=== PATIENT | female | born 1960 | race Caucasian/White ===

== ENCOUNTER 2021-08-26 16:44 | Inpatient (IN) ==
[2021-08-26] MEDS ORDERED: Naloxone 0.4 MG/ML INJ IVP PRN (17:27)
[2021-08-26] MEDS ORDERED: Ondansetron ODT 4 MG TAB.RAPDIS SL PRN (17:27)
[2021-08-26] MEDS ORDERED: D5% in Water 1,000 ML IVC PRN (17:30)
[2021-08-26] MEDS ORDERED: *HR* Dextrose 50 % in Water (Syg) 50 ML SYRINGE IVP PRN (17:30)
[2021-08-26] MEDS ORDERED: Dextrose Gel 15 GM/37.5 ML TUBE PO PRN ×2 (17:30)
[2021-08-26] MEDS ORDERED: Vancomycin 2,000 MG/520 ML IV.SOLN IVPB ONE (19:00)
[2021-08-26 23:11] LABS: Basophils # 0.1 K/mcL (0.0-0.2); Basophils % 0.8 %; Eosinophils # 0.2 K/mcL (0.0-0.6); Eosinophils % 2.4 %; Hemoglobin 8.9 g/dL (11.5-15.4); Immature Granulocytes % 1.9 % (0-4); Lymphocytes # 1.2 K/mcL (0.6-4.6); Lymphocytes % 19.4 %; Mean Corpuscular HGB Conc 30.7 g/dL (31.6-35.5); Mean Corpuscular Hemoglobin 26.4 pg (28.0-33.3); Mean Corpuscular Volume 86.1 fL (83.0-100.0); Mean Platelet Volume 8.8 fL (9.4-12.4); Monocytes # 0.4 K/mcL (0.0-1.3); Monocytes % 5.8 %; Neutrophils # 4.4 K/mcL (1.6-8.9); Platelet Count 218 K/mcL (140-400); Red Blood Count 3.37 M/mcL (3.82-4.97); Red Cell Distribution Width 15.1 % (11.5-14.5); Segmented Neutrophils % 69.7 %; White Blood Count 6.3 K/mcL (4.3-11.1)
[2021-08-26 23:18] LABS: INR 1.2; Prothrombin Time 13.7 Seconds (9.4-12.1)
[2021-08-26 23:20] LABS: Activated Partial Thrombo Time 34.1 Seconds (26.0-36.0)
[2021-08-26] MEDS: *HR* HYDROcodone/Acet 5/325 mg TABLET PO PRN (23:42)
[2021-08-26 23:50] LABS: Alanine Aminotransferase 33 Units/L (7-52); Albumin 3.5 g/dL (3.5-5.7); Albumin/Globulin Ratio 1.1 (1.1-2.2); Alkaline Phosphatase 119 Units/L (34-104); Aspartate Amino Transferase 49 Units/L (13-39); BUN/Creatinine Ratio 16 (6-26); Bilirubin,Total 0.6 mg/dL (0.3-1.0); Blood Urea Nitrogen 13 mg/dL (8-23); Calcium 8.9 mg/dL (8.6-10.3); Carbon Dioxide 26 mEq/L (23-29); Chloride 102 mEq/L (98-107); Globulin 3.3 g/dL (2.4-3.5); Glucose 182 mg/dL (70-105); Magnesium 1.8 mg/dL (1.6-2.6); Osmolality,Calculated 291 (280-300); Sodium 138 mEq/L (136-145); Total Protein 6.8 g/dL (6.4-8.9); eGFR For African Americans > 60 (> 60); eGFR For Non-African Americans > 60 (> 60)
[2021-08-27] MEDS: Piperacillin/Tazobactam 3.375 GM in 0.9 % Sodium Chloride Mini Bag 100 ML IVPB SCH ×2 (01:20→10:09)
[2021-08-27] MEDS: *HR* Enoxaparin 40 MG/0.4 ML SYRINGE SQ SCH (05:38)
[2021-08-27] MEDS: *HR* HYDROcodone/Acet 5/325 mg TABLET PO PRN (05:38)
[2021-08-27] MEDS ORDERED: Vancomycin 1,500 MG/265 ML IV.SOLN IVPB SCH (08:00)
[2021-08-27] MEDS: Insulin LISPRO 300 UNITS/3 ML VIAL SUBQ SCH ×3 (09:58→16:55)
[2021-08-27] MEDS: Fluconazole 100 MG TABLET PO SCH (09:58)
[2021-08-27] MEDS: Aspirin Enteric Coated 81 MG Tablet PO SCH (09:59)
[2021-08-27] MEDS: DICLOFENAC SODIUM TP SCH ×2 (09:59→21:00)
[2021-08-27] MEDS: lisinopriL 10 MG TABLET PO SCH (09:59)
[2021-08-27] MEDS: Gabapentin 400 MG CAPSULE PO SCH ×2 (09:59→19:34)
[2021-08-27 13:49] LABS: Estimated Average Glucose 212 mg/dl
[2021-08-28 05:36] LABS: Basophils # 0.1 K/mcL (0.0-0.2); Basophils % 0.9 %; Eosinophils # 0.1 K/mcL (0.0-0.6); Eosinophils % 2.1 %; Hematocrit 25.9 % (35.3-44.9); Hemoglobin 8.2 g/dL (11.5-15.4); Immature Granulocytes % 2.3 % (0-4); Lymphocytes % 19.7 %; Mean Corpuscular HGB Conc 31.7 g/dL (31.6-35.5); Mean Corpuscular Hemoglobin 26.8 pg (28.0-33.3); Mean Corpuscular Volume 84.6 fL (83.0-100.0); Mean Platelet Volume 8.7 fL (9.4-12.4); Monocytes # 0.3 K/mcL (0.0-1.3); Monocytes % 6.3 %; Neutrophils # 3.6 K/mcL (1.6-8.9); Platelet Count 181 K/mcL (140-400); Red Blood Count 3.06 M/mcL (3.82-4.97); Red Cell Distribution Width 14.7 % (11.5-14.5); Segmented Neutrophils % 68.7 %; White Blood Count 5.3 K/mcL (4.3-11.1)
[2021-08-28] MEDS ORDERED: Vancomycin 1,000 MG, 0.9 % Sodium Chloride 1,000 ML IR ONE (06:00)
[2021-08-28 06:04] LABS: BUN/Creatinine Ratio 19 (6-26); Blood Urea Nitrogen 15 mg/dL (8-23); Calcium 8.9 mg/dL (8.6-10.3); Carbon Dioxide 28 mEq/L (23-29); Chloride 97 mEq/L (98-107); Glucose 330 mg/dL (70-105); Magnesium 1.6 mg/dL (1.6-2.6); Osmolality,Calculated 292 (280-300); Potassium 4.2 mEq/L (3.5-5.1); Sodium 134 mEq/L (136-145); eGFR For African Americans > 60 (> 60); eGFR For Non-African Americans > 60 (> 60)
[2021-08-28] MEDS: *HR* Enoxaparin 40 MG/0.4 ML SYRINGE SQ SCH (07:00)
[2021-08-28] MEDS: Insulin LISPRO 300 UNITS/3 ML VIAL SUBQ SCH ×3 (10:07→17:09)
[2021-08-28] MEDS: lisinopriL 10 MG TABLET PO SCH (10:09)
[2021-08-28] MEDS: Gabapentin 400 MG CAPSULE PO SCH ×2 (10:09→20:18)
[2021-08-28] MEDS: Aspirin Enteric Coated 81 MG Tablet PO SCH (10:09)
[2021-08-28] MEDS: DICLOFENAC SODIUM TP SCH ×2 (10:10→20:20)
[2021-08-28] MEDS: Fluconazole 100 MG TABLET PO SCH (10:10)
[2021-08-28] MEDS ORDERED: *HR* FentaNYL (PF) 100 MCG/2 ML VIAL ONE (10:56)
[2021-08-28] MEDS ORDERED: Lidocaine -MPF 2% 5 ML VIAL ONE (10:56)
[2021-08-28] MEDS ORDERED: Ondansetron 4 MG/2 ML VIAL ONE (12:28)
[2021-08-28] MEDS ORDERED: 0.9 % Sodium Chloride 250 ML ONE (12:52)
[2021-08-28] MEDS ORDERED: *HR* Propofol 200 MG/20 ML VIAL IVP ONE (13:05)
[2021-08-29 02:06] LABS: Basophils % 0.4 %; Eosinophils # 0.1 K/mcL (0.0-0.6); Eosinophils % 1.6 %; Hematocrit 26.1 % (35.3-44.9); Hemoglobin 8.1 g/dL (11.5-15.4); Immature Granulocytes % 1.7 % (0-4); Lymphocytes # 1.2 K/mcL (0.6-4.6); Lymphocytes % 16.1 %; Mean Corpuscular Hemoglobin 26.6 pg (28.0-33.3); Mean Corpuscular Volume 85.9 fL (83.0-100.0); Mean Platelet Volume 8.9 fL (9.4-12.4); Monocytes # 0.5 K/mcL (0.0-1.3); Monocytes % 6.7 %; Neutrophils # 5.6 K/mcL (1.6-8.9); Platelet Count 182 K/mcL (140-400); Red Blood Count 3.04 M/mcL (3.82-4.97); Red Cell Distribution Width 14.8 % (11.5-14.5); Segmented Neutrophils % 73.5 %; White Blood Count 7.6 K/mcL (4.3-11.1)
[2021-08-29 02:25] LABS: BUN/Creatinine Ratio 18 (6-26); Blood Urea Nitrogen 14 mg/dL (8-23); Calcium 8.6 mg/dL (8.6-10.3); Carbon Dioxide 26 mEq/L (23-29); Chloride 100 mEq/L (98-107); Glucose 275 mg/dL (70-105); Magnesium 1.5 mg/dL (1.6-2.6); Osmolality,Calculated 292 (280-300); Phosphorous 3.4 mg/dL (2.7-4.5); Sodium 136 mEq/L (136-145); eGFR For African Americans > 60 (> 60); eGFR For Non-African Americans > 60 (> 60)
[2021-08-29] MEDS: *HR* Enoxaparin 40 MG/0.4 ML SYRINGE SQ SCH (05:34)
[2021-08-29] MEDS: lisinopriL 10 MG TABLET PO SCH (08:02)
[2021-08-29] MEDS: Aspirin Enteric Coated 81 MG Tablet PO SCH (08:02)
[2021-08-29] MEDS: Fluconazole 100 MG TABLET PO SCH (08:02)
[2021-08-29] MEDS: Gabapentin 400 MG CAPSULE PO SCH ×2 (08:03→20:26)
[2021-08-29] MEDS: DICLOFENAC SODIUM TP SCH (08:03)
[2021-08-29] MEDS: Insulin LISPRO 300 UNITS/3 ML VIAL SUBQ SCH ×5 (08:08→16:56)
[2021-08-29] MEDS: Insulin DETEMIR 100 UNIT/ML X5UNITS SUBQ SCH ×2 (08:42→20:27)
[2021-08-29] MEDS: *HR* HYDROcodone/Acet 5/325 mg TABLET PO PRN ×2 (10:46→22:03)
[2021-08-29] MEDS: Piperacillin/Tazobactam 3.375 GM in 0.9 % Sodium Chloride Mini Bag 100 ML IVPB SCH ×2 (12:19→20:28)
[2021-08-29] MEDS: Vancomycin 1,500 MG/265 ML IV.SOLN IVPB SCH (13:40)
[2021-08-30] MEDS: Vancomycin 1,500 MG/265 ML IV.SOLN IVPB SCH ×3 (00:40→23:59)
[2021-08-30] MEDS: Piperacillin/Tazobactam 3.375 GM in 0.9 % Sodium Chloride Mini Bag 100 ML IVPB SCH ×3 (04:08→20:26)
[2021-08-30] MEDS: *HR* Enoxaparin 40 MG/0.4 ML SYRINGE SQ SCH (05:39)
[2021-08-30] MEDS: lisinopriL 10 MG TABLET PO SCH (07:55)
[2021-08-30] MEDS: Aspirin Enteric Coated 81 MG Tablet PO SCH (07:55)
[2021-08-30] MEDS: Gabapentin 400 MG CAPSULE PO SCH ×2 (07:55→20:26)
[2021-08-30] MEDS: Fluconazole 100 MG TABLET PO SCH (07:56)
[2021-08-30] MEDS: Insulin LISPRO 300 UNITS/3 ML VIAL SUBQ SCH ×6 (07:58→17:10)
[2021-08-30] MEDS: Insulin DETEMIR 100 UNIT/ML X5UNITS SUBQ SCH ×2 (08:19→21:20)
[2021-08-30] MEDS: *HR* HYDROcodone/Acet 5/325 mg TABLET PO PRN (15:42)
[2021-08-31] MEDS: Piperacillin/Tazobactam 3.375 GM in 0.9 % Sodium Chloride Mini Bag 100 ML IVPB SCH ×3 (04:48→20:10)
[2021-08-31] MEDS: *HR* Enoxaparin 40 MG/0.4 ML SYRINGE SQ SCH (04:48)
[2021-08-31] MEDS: Insulin LISPRO 300 UNITS/3 ML VIAL SUBQ SCH ×6 (07:57→17:14)
[2021-08-31] MEDS: Aspirin Enteric Coated 81 MG Tablet PO SCH (07:58)
[2021-08-31] MEDS: lisinopriL 10 MG TABLET PO SCH (07:58)
[2021-08-31] MEDS: Gabapentin 400 MG CAPSULE PO SCH ×2 (07:58→20:09)
[2021-08-31] MEDS: Fluconazole 100 MG TABLET PO SCH (07:58)
[2021-08-31] MEDS: *HR* HYDROcodone/Acet 5/325 mg TABLET PO PRN (08:08)
[2021-08-31] MEDS: Insulin DETEMIR 100 UNIT/ML X5UNITS SUBQ SCH ×2 (08:08→20:09)
[2021-08-31 09:28] LABS: BUN/Creatinine Ratio 15 (6-26); Blood Urea Nitrogen 13 mg/dL (8-23); Calcium 8.4 mg/dL (8.6-10.3); Carbon Dioxide 27 mEq/L (23-29); Chloride 98 mEq/L (98-107); Glucose 375 mg/dL (70-105); Osmolality,Calculated 289 (280-300); Sodium 132 mEq/L (136-145); eGFR For African Americans > 60 (> 60); eGFR For Non-African Americans > 60 (> 60)
[2021-08-31] MEDS: Vancomycin 1,500 MG/265 ML IV.SOLN IVPB SCH ×2 (11:49→23:42)
[2021-09-01 02:00] LABS: BUN/Creatinine Ratio 17 (6-26); Blood Urea Nitrogen 16 mg/dL (8-23); Calcium 8.4 mg/dL (8.6-10.3); Carbon Dioxide 25 mEq/L (23-29); Chloride 100 mEq/L (98-107); Glucose 362 mg/dL (70-105); Magnesium 1.5 mg/dL (1.6-2.6); Osmolality,Calculated 292 (280-300); Phosphorous 3.4 mg/dL (2.7-4.5); Potassium 4.1 mEq/L (3.5-5.1); Sodium 133 mEq/L (136-145); eGFR For African Americans > 60 (> 60); eGFR For Non-African Americans 60 (> 60)
[2021-09-01] MEDS: Piperacillin/Tazobactam 3.375 GM in 0.9 % Sodium Chloride Mini Bag 100 ML IVPB SCH ×3 (04:38→20:40)
[2021-09-01] MEDS: *HR* Enoxaparin 40 MG/0.4 ML SYRINGE SQ SCH (04:39)
[2021-09-01] MEDS: Insulin LISPRO 300 UNITS/3 ML VIAL SUBQ SCH ×6 (07:56→17:25)
[2021-09-01] MEDS: Insulin DETEMIR 100 UNIT/ML X5UNITS SUBQ SCH (07:56)
[2021-09-01] MEDS: Gabapentin 400 MG CAPSULE PO SCH ×2 (07:57→20:38)
[2021-09-01] MEDS: Aspirin Enteric Coated 81 MG Tablet PO SCH (07:57)
[2021-09-01] MEDS: lisinopriL 10 MG TABLET PO SCH (07:57)
[2021-09-01] MEDS: Fluconazole 100 MG TABLET PO SCH (07:57)
[2021-09-01] MEDS: Magnesium Oxide 400 MG TABLET PO SCH ×2 (08:31→20:39)
[2021-09-01] MEDS: Vancomycin 1,500 MG/265 ML IV.SOLN IVPB SCH (13:17)
[2021-09-01] MEDS: *HR* HYDROcodone/Acet 5/325 mg TABLET PO PRN (20:37)
[2021-09-01] MEDS ORDERED: Insulin DETEMIR 100 UNIT/ML X5UNITS SUBQ SCH (21:00)
[2021-09-02] MEDS: Vancomycin 1,500 MG/265 ML IV.SOLN IVPB SCH ×2 (00:49→11:49)
[2021-09-02] MEDS: *HR* Enoxaparin 40 MG/0.4 ML SYRINGE SQ SCH (04:02)
[2021-09-02] MEDS: Piperacillin/Tazobactam 3.375 GM in 0.9 % Sodium Chloride Mini Bag 100 ML IVPB SCH ×2 (04:02→11:49)
[2021-09-02 05:45] LABS: BUN/Creatinine Ratio 17 (6-26); Blood Urea Nitrogen 15 mg/dL (8-23); Calcium 8.7 mg/dL (8.6-10.3); Carbon Dioxide 28 mEq/L (23-29); Chloride 100 mEq/L (98-107); Glucose 367 mg/dL (70-105); Magnesium 1.6 mg/dL (1.6-2.6); Osmolality,Calculated 296 (280-300); Phosphorous 3.4 mg/dL (2.7-4.5); Potassium 3.8 mEq/L (3.5-5.1); Sodium 135 mEq/L (136-145); eGFR For African Americans > 60 (> 60); eGFR For Non-African Americans > 60 (> 60)
[2021-09-02] MEDS: Insulin DETEMIR 100 UNIT/ML X5UNITS SUBQ SCH ×2 (08:19→20:43)
[2021-09-02] MEDS: Fluconazole 100 MG TABLET PO SCH (08:20)
[2021-09-02] MEDS: Insulin LISPRO 300 UNITS/3 ML VIAL SUBQ SCH ×6 (08:20→16:30)
[2021-09-02] MEDS: Gabapentin 400 MG CAPSULE PO SCH ×2 (08:21→20:39)
[2021-09-02] MEDS: lisinopriL 10 MG TABLET PO SCH (08:21)
[2021-09-02] MEDS: Magnesium Oxide 400 MG TABLET PO SCH ×2 (08:21→20:41)
[2021-09-02] MEDS: Aspirin Enteric Coated 81 MG Tablet PO SCH (08:21)
[2021-09-02] MEDS ORDERED: Lidocaine -MPF 1% 5 ML AMPUL INFILT ONE (15:46)
[2021-09-03] MEDS: Vancomycin 1,500 MG/265 ML IV.SOLN IVPB SCH ×2 (00:31→12:27)
[2021-09-03] MEDS: *HR* Enoxaparin 40 MG/0.4 ML SYRINGE SQ SCH (04:52)
[2021-09-03 06:32] LABS: BUN/Creatinine Ratio 18 (6-26); Blood Urea Nitrogen 14 mg/dL (8-23); Calcium 8.9 mg/dL (8.6-10.3); Carbon Dioxide 28 mEq/L (23-29); Chloride 101 mEq/L (98-107); Glucose 309 mg/dL (70-105); Magnesium 1.7 mg/dL (1.6-2.6); Osmolality,Calculated 296 (280-300); Phosphorous 3.7 mg/dL (2.7-4.5); Potassium 3.9 mEq/L (3.5-5.1); Sodium 137 mEq/L (136-145); eGFR For African Americans > 60 (> 60); eGFR For Non-African Americans > 60 (> 60)
[2021-09-03] MEDS: Insulin LISPRO 300 UNITS/3 ML VIAL SUBQ SCH ×6 (08:46→16:43)
[2021-09-03] MEDS: Fluconazole 100 MG TABLET PO SCH (08:46)
[2021-09-03] MEDS: Gabapentin 400 MG CAPSULE PO SCH ×2 (08:47→20:12)
[2021-09-03] MEDS: Aspirin Enteric Coated 81 MG Tablet PO SCH (08:47)
[2021-09-03] MEDS: Magnesium Oxide 400 MG TABLET PO SCH ×2 (08:47→20:11)
[2021-09-03] MEDS: lisinopriL 10 MG TABLET PO SCH (08:47)
[2021-09-03] MEDS: Insulin DETEMIR 100 UNIT/ML X5UNITS SUBQ SCH ×2 (08:47→21:35)
[2021-09-04 06:25] VITALS: BP 156/83; PULSE 80; TEMP 97.9; O2SAT 97
[2021-09-04] MEDS: *HR* Enoxaparin 40 MG/0.4 ML SYRINGE SQ SCH (06:40)
== END 2021-09-04 06:54 | disposition home health service (06) | DRG 617 ==
LOC: 3BNU → SUATTDRO 16:50
PROVIDERS: ADMIT Student in an Organized Health Care Education/Training Program; ATTEND Internal Medicine